=== PATIENT | male | born 1985 | race Caucasian/White ===

== ENCOUNTER 2018-12-16 14:07 | Emergency (ER) | payer OTHER ==
[2018-12-16 14:34] VITALS: BP 0/0; BMI 25.8
--- NOTE | 2018-12-16 14:58 | PDOC ---
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 Needed evaluation for noted scratches to his forehead last evening. No known but and wears helmet for head banging tendencies. Occurred: reports: yesterday Severity: reports: mild Pain Location: reports: face Method of Injury: Yes: unknown Modifying Factors: improves with: None Loss of Consciousness: no loss of consciousness Associated Symptoms (Fall): denies symptoms (no changes in behavior) Past History - Travel Traveled outside of the country in the last 30 days: No Close contact w/someone who was outside of country & ill: No - Past Medical History Allergies/Adverse Reactions: Allergies Allergy/AdvReac Type Severity Reaction Status Date / Time No Known Allergies Allergy Verified 12/16/18 14:34 Home Medications: Ambulatory Orders Divalproex [Depakote -] 500 mg PO DAILY 12/16/18 Lamotrigine [Lamictal Xr] 50 mg PO ASDIR 12/16/18 Levothyroxine [Synthroid -] 125 mcg PO DAILY 12/16/18 Lorazepam [Ativan] 2 mg PO ASDIR 12/16/18 Zolpidem Tartrate 10 mg PO ASDIR 12/16/18 COPD: No Other medical history: mentally retarded, autism and blind - Suicide/Smoking/Psychosocial Hx Smoking History: Never smoked Review of Systems - Review of Systems Able to Perform ROS?: Yes Is the patient limited [place] proficient: Yes Constitutional: Yes: See HPI. No: Symptoms Reported, Fever, Malaise HEENTM: Yes: See HPI, Other (no bruising, or contusions noted, only superficial abrasion x2). No: Symptoms Reported Respiratory: No: Symptoms reported Cardiac (ROS): No: Symptoms Reported All Other Systems: Reviewed and Negative *Physical Exam - Vital Signs Last Vital Signs Temp Pulse Resp BP Pulse Ox 0/0 L 12/16/18 14:30 - Physical Exam General Appearance: Yes: Nourished, Appropriately Dressed. No: Apparent Distress HEENT: positive: Normal ENT Inspection, Other (2 superficial abrasions to mid upper forehead. No hematoma/ redness or drainage. exam is limited due to contact agression of patient. ). negative: KYLER Musculoskeletal: positive: Normal Inspection Extremity: positive: Normal Capillary Refill Integumentary: negative: Swelling, Ecchymosis, Bruising Neurologic: positive: Normal Mood/Affect (per care provider, behavior unchanged ), Normal Response Moderate Sedation - Procedure Monitoring Vital Signs: Procedure Monitoring Vital Signs Temperature Pulse Rate Respiratory Rate Blood Pressure 0/0 L 12/16/18 14:30 O2 Sat by Pulse Oximetry (%) Progress Note - Progress Note Progress Note: superficial abrasions to face, no treatment required. *DC/Admit/Observation/Transfer Diagnosis at time of Disposition: Superficial abrasion - Discharge Dispostion Disposition: HOME Condition at time of disposition: Stable Decision to Admit order: No - Referrals - Patient Instructions Printed Discharge Instructions: DI for Abrasion Additional Instructions: Rest, keep area elevated. Allow water from shower to wash area thoroughly for 2-3 minutes, and pat dry upon exit of shower and replace bacitracin if possible May use Tylenol or Motrin for mild pain relief Return to emergency Department for worsening swelling, pain, redness, fevers as needed - Post Discharge Activity
== END 2018-12-16 15:02 | disposition home or self-care (01) ==
LOC: JERFT 14:07
DX: S00.81XA Abrasion of other part of head, initial encounter (principal); X58.XXXA Exposure to other specified factors, initial encounter; Y93.89 Activity, other specified; Y92.198 Other place in other specified residential institution as the place of occurrence of the external cause; Y99.8 Other external cause status; F72 Severe intellectual disabilities; F84.0 Autistic disorder; F98.4 Stereotyped movement disorders
CPT/HCPCS: 99281-25